=== PATIENT | female | born 1970 ===

== ENCOUNTER 2020-09-17 14:26 | Observation (INO) ==
[2020-09-17 15:00] LABS: ABS Basophils 0.1 10^3/ul (0-0.2); ABS Eosinophils 0.1 10^3/ul (0-0.6); ABS Lymphocytes 1.7 10^3/ul (1.0-4.8); ABS Monocytes 0.4 10^3/ul (0-0.8); ABS Neutrophils 4.5 10^3/ul (1.5-7.7); Hematocrit 38 % (35-47); Hemoglobin 12.9 g/dL (12.0-16.0); Lymphocyte % 25.6 %; Mean Corpuscular HGB Conc 34 g/dL (31-36); Mean Corpuscular Hemoglobin 29 pg (27-31); Mean Corpuscular Volume 86 fL (80-97); Mean Platelet Volume 8.3 fL (7.4-10.4); Nucleated Red Blood Cells % 0.1; Platelet Count 288 10^3/uL (150-450); Red Blood Count 4.42 10^6 /uL (3.70-4.87); Red Cell Distribution Width 14 % (10-15); White Blood Count 6.8 10^3/uL (3.5-10.8)
[2020-09-17 15:12] LABS: INR 1.13 (0.86-1.15)
[2020-09-17 16:00] LABS: Albumin 4.1 g/dL (3.2-5.2); Albumin/Globulin Ratio 1.4 (1-3); Calcium 8.9 mg/dL (8.6-10.3); EGFR African American 78.6 (>60); EGFR Non-African American 64.9 (>60); Globulin 2.9 g/dL (2-4); Potassium 3.7 mmol/L (3.5-5.0); Total Bilirubin 0.2 mg/dL (0.2-1.0)
[2020-09-17] MEDS ORDERED: NS 0.9% 1000 ml BAG 1,000 ML IV ONE (17:52)
[2020-09-17] MEDS ORDERED: oxyCODONE/Acetamin 5/325 mg TAB PO PRN (19:28)
[2020-09-18] MEDS ORDERED: Al Hydrox/Mg Hydrox/Simet LIQ 30 ML UDC PO PRN (07:19)
[2020-09-18] MEDS ORDERED: Aminophylline 25 MG/ML VIAL ONE (08:15)
[2020-09-18] MEDS ORDERED: Regadenoson 0.4 MG/5 ML SYRINGE ONE (08:15)
[2020-09-18 11:22] VITALS: BP 144/63
== END 2020-09-18 15:00 | disposition home or self-care (01) ==
LOC: ED 14:26 → MEDTELE 14:26
PROVIDERS: ADMIT Internal Medicine; ATTEND Internal Medicine